=== PATIENT | male | born 1960 | race Two or more races ===

== ENCOUNTER 2023-05-27 10:20 | Outpatient (REF) | payer MEDICAID, SELFPAY | END 2023-05-27 10:21 | disposition home or self-care (01) | LOC: HO.WMHL 10:20 | PROVIDERS: Visit Provider Nurse Practitioner Adult Health | DX: R46.89 Other symptoms and signs involving appearance and behavior (principal); R82.90 Unspecified abnormal findings in urine | CPT/HCPCS: 81001; 87086; 87088; 87186 ==